=== PATIENT | male | born 1940 | race Caucasian/White ===

== ENCOUNTER 2019-10-05 22:18 | Observation (INO) ==
[2019-10-05] MEDS ORDERED: MORPHINE 4 MG/1 ML VIAL IV STA (22:47)
[2019-10-05] MEDS ORDERED: ONDANSETRON 4 MG/2 ML VIAL IV ONE (22:47)
[2019-10-05 23:26] LABS: Basophils % 0.1 % (0.0-0.8); Eosinophils % 0.3 % (0.00-10.9); Hematocrit 42.4 VOL% (42.0-52.0); Immature Granulocytes % 6.7 %; Immature Granulocytes Absolute 0.71 #; Lymphocytes # 2.1 10*3/uL (1.4-4.0); Lymphocytes % 19.4 % (21.2-54.2); Mean Corpuscular Volume 89.6 FL (87-102); Mean Platelet Volume 11.5 FL (9.6-12.0); Monocytes % 5.5 % (1.7-12.7); Platelet Count 196 T/CUMM (130-400); Red Blood Count 4.73 MC/CUMM (3.8-5.5); Red Cell Distribution Width 14.9 % (9.3-17.3); White Blood Count 10.5 T/CUMM (4-12)
[2019-10-05 23:37] LABS: Albumin 3.8 G/DL (3.4-5.0); Bilirubin,Total 0.7 MG/DL (0.2-1.0); Calcium 9.5 MG/DL (8.5-10.1); Osmolality,Calculated 276.1 MOS/KG (273-304); Total Protein 8.5 G/DL (6.4-8.3)
[2019-10-05] MEDS ORDERED: SODIUM CHLORIDE 0.9% 1,000 ML IV STA (23:45)
[2019-10-05] MEDS ORDERED: ACETYLCYSTEINE 600 MG CAPSULE PO STA (23:45)
[2019-10-06] MEDS ORDERED: MORPHINE 4 MG/1 ML VIAL IV STA (01:06)
[2019-10-06 01:50] LABS: Band Neutrophils 2 % (0-10); Lymphocytes 15 % (20-55); Segmented Neutrophils 78 % (50-85); Total Cells Counted 100
[2019-10-06 01:51] LABS: Platelet Estimate Normal
[2019-10-06] MEDS ORDERED: HYDROmorphone 2 MG/1 ML VIAL IV STA (01:52)
[2019-10-06] MEDS ORDERED: PROMETHAZINE INJ 12.5 MG in SODIUM CHLORIDE 0.9% 50 ML IV STA (01:52)
[2019-10-06] MEDS ORDERED: PROMETHAZINE 25 MG/1 ML VIAL ONE (02:15)
[2019-10-06 03:26] LABS: Apearance,Urine CLEAR (Clear); Bilirubin,Urine Negative (Negative); Blood, Urine Negative (Negative); Glucose,Urine (UA) Negative (Negative); Ketones,Urine 5 mg/dL (Negative); Mucus,Urine Occasional /LPF (Occasional); Nitrite,Urine Negative (Negative); Protein,Urine Negative; RBC,Urine 9 /HPF (0-4); Squamous Epithelial Cell,Urine Occasional /HPF (0-10); Urine Color Yellow (Yellow); Urine Specific Gravity 1.049 (1.001-1.035); Urine Urobilinogen < 2.0 EU/DL (0.2-1.0); WBC,Urine 1 /HPF (0-6)
[2019-10-06] MEDS ORDERED: ONDANSETRON 4 MG/2 ML VIAL IV PRN (04:56)
[2019-10-06] MEDS: SODIUM CHLORIDE 0.9% 1,000 ML IV SCH ×3 (05:52→20:30)
[2019-10-06 06:11] VITALS: BP 170/83
[2019-10-06] MEDS ORDERED: HYDROmorphone 2 MG/1 ML VIAL IV PRN (08:00)
[2019-10-06] MEDS: TAMSULOSIN 0.4 MG CAPSULE PO SCH ×2 (09:12→20:29)
[2019-10-07] MEDS: SODIUM CHLORIDE 0.9% 1,000 ML IV SCH ×2 (04:35→11:24)
[2019-10-07 05:23] LABS: Basophils % 0.2 % (0.0-0.8); Eosinophils # 0.1 10*3/uL (0.0-0.87); Eosinophils % 0.7 % (0.00-10.9); Hematocrit 33.7 VOL% (42.0-52.0); Hemoglobin 10.8 GM/DL (14.0-18.0); Immature Granulocytes % 2.2 %; Lymphocytes # 3.3 10*3/uL (1.4-4.0); Lymphocytes % 36.3 % (21.2-54.2); Mean Corpuscular Volume 93.1 FL (87-102); Mean Platelet Volume 12.1 FL (9.6-12.0); Monocytes % 13.2 % (1.7-12.7); Neutrophils % 47.4 % (38.7-73.9); Platelet Count 149 T/CUMM (130-400); Red Blood Count 3.62 MC/CUMM (3.8-5.5); Red Cell Distribution Width 15.6 % (9.3-17.3)
[2019-10-07 05:46] LABS: Osmolality,Calculated 281.4 MOS/KG (273-304)
[2019-10-07] MEDS: TAMSULOSIN 0.4 MG CAPSULE PO SCH (09:16)
== END 2019-10-07 12:58 | disposition home or self-care (01) ==
LOC: N.ED 22:18 → N.EDINP 22:18 → N.ICU 10-06 05:00
PROVIDERS: ADMIT Emergency Medicine; ATTEND Emergency Medicine

== ENCOUNTER 2019-11-03 10:06 | Observation (INO) ==
[2019-11-03] MEDS ORDERED: SODIUM CHLORIDE 0.9% 1,000 ML IV STA (10:35)
[2019-11-03] MEDS ORDERED: DILTIAZEM 25 MG/5 ML VIAL IV ONE (10:38)
[2019-11-03 10:42] LABS: Basophils % 0.2 % (0.0-0.8); Eosinophils # 0.2 10*3/uL (0.0-0.87); Eosinophils % 2.3 % (0.00-10.9); Hematocrit 40.8 VOL% (42.0-52.0); Hemoglobin 13.6 GM/DL (14.0-18.0); Hgb & Hct Comparison OK; Immature Granulocytes % 2.5 %; Immature Granulocytes Absolute 0.23 #; Lymphocytes # 3.2 10*3/uL (1.4-4.0); Lymphocytes % 35.8 % (21.2-54.2); Mean Corpuscular HGB Conc 33.3 GM/DL (32-36); Mean Corpuscular Hemoglobin 30 PG (27-34); Mean Corpuscular Volume 90.5 FL (87-102); Mean Platelet Volume 10.8 FL (9.6-12.0); Monocytes # 1.5 10*3/uL (0.11-0.8); Monocytes % 16.8 % (1.7-12.7); Neutrophils # 3.8 10*3/uL (1.4-7.4); Neutrophils % 42.4 % (38.7-73.9); Platelet Count 197 T/CUMM (130-400); Red Blood Count 4.51 MC/CUMM (3.8-5.5); Red Cell Distribution Width 15.1 % (9.3-17.3)
[2019-11-03] MEDS ORDERED: DILTIAZEM 50 MG/10 ML VIAL IV STA (10:42)
[2019-11-03 10:54] LABS: PT Patient Result 10.6 SECS (9.8-11.9); Partial Thromboplastin Time 29.3 SECS (23.9-33.8)
[2019-11-03 11:01] LABS: Lymphocytes 38 % (20-55); Monocytes 15 % (2-15); Segmented Neutrophils 47 % (50-85); Total Cells Counted 100
[2019-11-03 11:02] LABS: Hypochromasia 1+; Platelet Estimate Adequate
[2019-11-03 11:05] LABS: Albumin 3.8 G/DL (3.4-5.0); Albumin/Globulin Ratio 0.9 RATIO (1.1-2.2); Anion Gap 12.1 MMOL/L (5.0-15.0); Bilirubin,Total 0.5 MG/DL (0.2-1.0); Calcium 9.3 MG/DL (8.5-10.1); Globulin 3.9 G/DL (2.3-3.5); Osmolality,Calculated 274.7 MOS/KG (273-304); Potassium 4.1 MMOL/L (3.5-5.1); Total Protein 7.7 G/DL (6.4-8.3)
[2019-11-03 11:07] LABS: Creatine Kinase MB 1.6 NG/ML (0.5-3.6); Troponin I < 0.015 NG/ML (0.00-0.045)
[2019-11-03] MEDS: dilTIAZem Drip 125 MG/125 ML PREMIX IV SCH (11:15)
[2019-11-03 11:34] LABS: T4 (Thyroxine) 10.6 UG/DL (4.7-13.3); Thyroid Stimulating Hormone 3.55 uIU/ml (0.358-3.74)
[2019-11-03] MEDS ORDERED: ACETAMINOPHEN 325 MG TABLET PO PRN (13:52)
[2019-11-03] MEDS ORDERED: ONDANSETRON 4 MG/2 ML VIAL IV PRN (13:52)
[2019-11-03] MEDS ORDERED: hydrALAZINE 20 MG/1 ML VIAL IV PRN (13:52)
[2019-11-03] MEDS ORDERED: DOCUSATE SODIUM 100 MG CAPSULE PO PRN (13:52)
[2019-11-03] MEDS ORDERED: guaiFENesin/DM ER 600-30 MG TABLET PO PRN (13:52)
[2019-11-03] MEDS ORDERED: DEXTROSE 50% 25 GM/50 ML VIAL IV PRN (13:52)
[2019-11-03] MEDS ORDERED: GLUCAGON 1 MG VIAL IM PRN (13:52)
[2019-11-03] MEDS ORDERED: PANTOPRAZOLE 40 MG VIAL IV ONE (13:55)
[2019-11-03] MEDS ORDERED: ENOXAPARIN 40 MG/0.4 ML SYRINGE SUBCUT SCH (14:00)
[2019-11-03 14:14] LABS: Creatine Kinase MB 1.6 NG/ML (0.5-3.6); Troponin I < 0.015 NG/ML (0.00-0.045)
[2019-11-03 14:15] LABS: Magnesium 2.3 MG/DL (1.8-2.4); Risk Ratio 5.53; VLDL CHOLESTEROL 27.2 MG/DL
[2019-11-03 15:55] LABS: Apearance,Urine CLEAR (Clear); Bilirubin,Urine Negative (Negative); Blood, Urine Negative (Negative); Culture Indicated,Urine Not Indicated; Glucose,Urine (UA) Negative (Negative); Ketones,Urine Negative (Negative); Mucus,Urine Occasional /LPF (Occasional); Nitrite,Urine Negative (Negative); Protein,Urine Negative; Urine Color Straw (Yellow); Urine Specific Gravity 1.004 (1.001-1.035); Urine Urobilinogen < 2.0 EU/DL (0.2-1.0)
[2019-11-03] MEDS: ASPIRIN CHEW 81 MG TABLET PO SCH (16:32)
[2019-11-03] MEDS: AMOXICILLIN/CLAV 875 MG TABLET PO SCH (17:36)
[2019-11-03 17:57] LABS: Creatine Kinase MB 1.8 NG/ML (0.5-3.6); Troponin I 0.022 NG/ML (0.00-0.045)
[2019-11-03] MEDS: ASCORBIC ACID 500 MG TABLET PO SCH (20:37)
[2019-11-03] MEDS: METOPROLOL TARTRATE 25 MG TABLET PO SCH (20:37)
[2019-11-04] MEDS: AMOXICILLIN/CLAV 875 MG TABLET PO SCH (06:49)
[2019-11-04 06:51] LABS: Anion Gap 10.9 MMOL/L (5.0-15.0); Calcium 8.7 MG/DL (8.5-10.1); Osmolality,Calculated 275.5 MOS/KG (273-304); Potassium 3.9 MMOL/L (3.5-5.1)
[2019-11-04 08:34] VITALS: BP 179/82
[2019-11-04] MEDS: ASPIRIN CHEW 81 MG TABLET PO SCH (08:39)
[2019-11-04] MEDS: ASCORBIC ACID 500 MG TABLET PO SCH (08:39)
[2019-11-04] MEDS: METOPROLOL TARTRATE 25 MG TABLET PO SCH (08:39)
[2019-11-04] MEDS ORDERED: OMEGA 3 ACID ETHYL ESTERS 1 GM CAPSULE PO SCH (09:00)
[2019-11-04] MEDS ORDERED: FINASTERIDE 5 MG TABLET PO SCH (09:00)
[2019-11-04] MEDS ORDERED: ATENOLOL 100 MG PO SCH (09:00)
[2019-11-04] MEDS: dilTIAZem Drip 125 MG/125 ML PREMIX IV SCH (10:17)
[2019-11-04] MEDS ORDERED: amLODIPine 5 MG TABLET PO SCH (11:30)
== END 2019-11-04 12:46 | disposition home or self-care (01) ==
LOC: N.EDINP 10:06 → N.ED 10:06 → N.TELEN 16:43
PROVIDERS: ADMIT Internal Medicine; ATTEND Internal Medicine

== ENCOUNTER 2022-03-05 15:16 | Observation (INO) ==
[2022-03-05] MEDS ORDERED: ASPIRIN 325 MG TABLET PO STA (15:50)
[2022-03-05 16:15] LABS: Basophils % 0.2 % (0.0-0.8); Eosinophils # 0.2 10*3/uL (0.0-0.87); Hematocrit 33.2 VOL% (42.0-52.0); Hemoglobin 11.3 GM/DL (14.0-18.0); Immature Granulocytes % 1.3 %; Immature Granulocytes Absolute 0.11 #; Lymphocytes # 2.7 10*3/uL (1.4-4.0); Mean Corpuscular Volume 91.7 FL (87-102); Mean Platelet Volume 10.2 FL (9.6-12.0); Monocytes # 1.5 10*3/uL (0.11-0.8); Monocytes % 17.2 % (1.7-12.7); Neutrophils % 48.3 % (38.7-73.9); Platelet Count 245 T/CUMM (130-400); Red Blood Count 3.62 MC/CUMM (3.8-5.5); Red Cell Distribution Width 14.4 % (9.3-17.3); White Blood Count 8.6 T/CUMM (4-12)
[2022-03-05 16:26] LABS: PT Patient Result 11.3 SECS (10.1-12.1)
[2022-03-05 16:34] LABS: Albumin 3.4 G/DL (3.4-5.0); Osmolality,Calculated 281.3 MOS/KG (273-304); Potassium 4.5 MMOL/L (3.5-5.1)
[2022-03-05] MEDS ORDERED: ENOXAPARIN 100 MG/ML SYRINGE SUBCUT STA (16:59)
[2022-03-05 17:10] LABS: Eosinophils 2 % (0-10); Hypochromia 1+; Lymphocytes 31 % (20-55); Platelet Estimate Adequate; Total Cells Counted 100
[2022-03-05] MEDS ORDERED: ONDANSETRON 4 MG/2 ML VIAL IV PRN (17:23)
[2022-03-05] MEDS ORDERED: DOCUSATE SODIUM 100 MG CAPSULE PO PRN (17:23)
[2022-03-05] MEDS ORDERED: ACETAMINOPHEN 325 MG TABLET PO PRN (17:23)
[2022-03-05] MEDS ORDERED: TICAGRELOR 90 MG TABLET PO STA (18:09)
[2022-03-05] MEDS ORDERED: MORPHINE 2 MG/1 ML SYRINGE IV PRN (18:11)
[2022-03-05] MEDS ORDERED: NITROGLYCERIN SL 0.4 MG TABLET SL PRN (18:12)
[2022-03-05] MEDS: OMEGA 3 ACID ETHYL ESTERS 1 GM CAPSULE PO SCH (23:21)
[2022-03-05] MEDS: carvediloL 3.125 MG TABLET PO SCH (23:21)
[2022-03-05] MEDS: ROSUVASTATIN 20 MG TABLET PO SCH (23:21)
[2022-03-06 04:47] LABS: Basophils % 0.1 % (0.0-0.8); Eosinophils # 0.2 10*3/uL (0.0-0.87); Eosinophils % 2.4 % (0.00-10.9); Hematocrit 30.5 VOL% (42.0-52.0); Hemoglobin 10.2 GM/DL (14.0-18.0); Immature Granulocytes % 1.2 %; Immature Granulocytes Absolute 0.09 #; Lymphocytes # 1.9 10*3/uL (1.4-4.0); Lymphocytes % 26.3 % (21.2-54.2); Mean Corpuscular HGB Conc 33.4 GM/DL (32-36); Mean Platelet Volume 10.7 FL (9.6-12.0); Monocytes % 14.1 % (1.7-12.7); Neutrophils % 55.9 % (38.7-73.9); Platelet Count 217 T/CUMM (130-400); Red Blood Count 3.28 MC/CUMM (3.8-5.5); Red Cell Distribution Width 14.5 % (9.3-17.3); White Blood Count 7.4 T/CUMM (4-12)
[2022-03-06 05:32] LABS: Calcium 8.5 MG/DL (8.5-10.1); Osmolality,Calculated 280.4 MOS/KG (273-304); Risk Ratio 2.87; Thyroid Stimulating Hormone 4.53 uIU/ml (0.358-3.74); VLDL Cholesterol 19.4 MG/DL
[2022-03-06] MEDS ORDERED: MAGNESIUM SULF RIDER 2 GM/50 ML PREMIX IV PRN (08:07)
[2022-03-06] MEDS ORDERED: POTASSIUM CHLORIDE RIDER 10 MEQ/100 ML PREMIX IV PRN (08:07)
[2022-03-06] MEDS ORDERED: diphenhydrAMINE CAP 50 MG CAPSULE PO ONE (08:08)
[2022-03-06] MEDS ORDERED: DIAZEPAM 5 MG TABLET PO ONE (08:08)
[2022-03-06] MEDS: carvediloL 3.125 MG TABLET PO SCH (08:25)
[2022-03-06] MEDS: ASPIRIN EC 81 MG TABLET PO SCH (08:31)
[2022-03-06] MEDS: PANTOPRAZOLE 40 MG TABLET PO SCH (08:32)
[2022-03-06] MEDS: SODIUM CHLORIDE 0.9% 1,000 ML IV SCH ×2 (08:33→18:21)
[2022-03-06] MEDS ORDERED: VERAPAMIL 5 MG/2 ML VIAL ONE (08:45)
[2022-03-06] MEDS ORDERED: NITROGLYCERIN DRIP 50 MG/250 ML BOTTLE IV ONE (08:45)
[2022-03-06] MEDS: OMEGA 3 ACID ETHYL ESTERS 1 GM CAPSULE PO SCH (08:45)
[2022-03-06] MEDS ORDERED: HYDROmorphone 1 MG/1 ML SYRINGE ONE (08:46)
[2022-03-06] MEDS ORDERED: MIDAZOLAM 2 MG/2 ML VIAL ONE (08:47)
[2022-03-06] MEDS ORDERED: TICAGRELOR 90 MG TABLET PO SCH (09:00)
[2022-03-06] MEDS ORDERED: ENOXAPARIN 60 MG/0.6 ML SYRINGE ONE (09:08)
[2022-03-06] MEDS ORDERED: ENOXAPARIN 30 MG/0.3 ML SYRINGE ONE (09:40)
[2022-03-06] MEDS ORDERED: TIROFIBAN 5,000 MCG/100 ML PREMIX IV ONE (09:40)
[2022-03-06] MEDS ORDERED: PRASUGREL 10 MG TABLET ONE (10:18)
[2022-03-06 15:58] LABS: Folate > 24.00 NG/ML (5.38-24.0); Vitamin B12 506 PG/ML (211-911)
[2022-03-07] MEDS: carvediloL 3.125 MG TABLET PO SCH ×2 (00:15→09:05)
[2022-03-07] MEDS: ROSUVASTATIN 20 MG TABLET PO SCH (00:15)
[2022-03-07] MEDS: OMEGA 3 ACID ETHYL ESTERS 1 GM CAPSULE PO SCH ×2 (00:15→09:07)
[2022-03-07 05:30] LABS: Basophils % 0.1 % (0.0-0.8); Eosinophils # 0.2 10*3/uL (0.0-0.87); Eosinophils % 1.8 % (0.00-10.9); Immature Granulocytes % 1.3 %; Immature Granulocytes Absolute 0.11 #; Lymphocytes # 1.3 10*3/uL (1.4-4.0); Lymphocytes % 16.4 % (21.2-54.2); Mean Corpuscular HGB Conc 33.3 GM/DL (32-36); Mean Corpuscular Volume 93.8 FL (87-102); Mean Platelet Volume 10.8 FL (9.6-12.0); Monocytes # 1.2 10*3/uL (0.11-0.8); Monocytes % 14.2 % (1.7-12.7); Neutrophils % 66.2 % (38.7-73.9); Platelet Count 193 T/CUMM (130-400); Red Blood Count 2.88 MC/CUMM (3.8-5.5); Red Cell Distribution Width 14.8 % (9.3-17.3); White Blood Count 8.2 T/CUMM (4-12)
[2022-03-07 05:49] LABS: Calcium 8.2 MG/DL (8.5-10.1); Osmolality,Calculated 272.8 MOS/KG (273-304); Potassium 4.4 MMOL/L (3.5-5.1)
[2022-03-07 05:52] LABS: Blood Urea Nitrogen 15 MG/DL (7-18); Calcium 8.3 MG/DL (8.5-10.1); Carbon Dioxide 22 MMOL/L (21-32); Chloride 110 MMOL/L (98-107); Glucose 98 MG/DL (74-106); Osmolality,Calculated 275.7 MOS/KG (273-304); Potassium 4.5 MMOL/L (3.5-5.1); Sodium 138 MMOL/L (136-145)
[2022-03-07] MEDS ORDERED: PRASUGREL 10 MG TABLET PO SCH (09:00)
[2022-03-07] MEDS: ASPIRIN EC 81 MG TABLET PO SCH (09:06)
[2022-03-07] MEDS: PANTOPRAZOLE 40 MG TABLET PO SCH (09:07)
[2022-03-07 12:19] VITALS: BP 117/81
== END 2022-03-07 14:12 | disposition home or self-care (01) ==
LOC: N.ED 15:16 → N.EDINP 15:16 → SUATTDRO 17:21 → N.TELES 19:09
PROVIDERS: ADMIT Hospitalist; ATTEND Internal Medicine

== ENCOUNTER 2022-03-12 05:44 | Inpatient (IN) ==
[2022-03-12] MEDS ORDERED: DILTIAZEM 100 MG VIAL.ADD IV ONE (05:55)
[2022-03-12] MEDS ORDERED: DILTIAZEM 50 MG/10 ML VIAL IV ONE (05:55)
[2022-03-12] MEDS: DILTIAZEM INJ 100 MG in SODIUM CHLORIDE 0.9% 100 ML IV SCH (06:00)
[2022-03-12] MEDS ORDERED: DILTIAZEM 25 MG/5 ML VIAL IV STA (06:16)
[2022-03-12 06:19] LABS: Eosinophils # 0.1 10*3/uL (0.0-0.87); Eosinophils % 1.2 % (0.00-10.9); Hematocrit 28.4 VOL% (42.0-52.0); Hemoglobin 9.3 GM/DL (14.0-18.0); Immature Granulocytes % 1.7 %; Immature Granulocytes Absolute 0.09 #; Lymphocytes # 2.5 10*3/uL (1.4-4.0); Lymphocytes % 47.1 % (21.2-54.2); Mean Corpuscular HGB Conc 32.7 GM/DL (32-36); Mean Corpuscular Volume 92.8 FL (87-102); Monocytes # 1.5 10*3/uL (0.11-0.8); Monocytes % 28.3 % (1.7-12.7); Neutrophils % 21.7 % (38.7-73.9); Platelet Count 160 T/CUMM (130-400); Red Blood Count 3.06 MC/CUMM (3.8-5.5); Red Cell Distribution Width 14.9 % (9.3-17.3); White Blood Count 5.2 T/CUMM (4-12)
[2022-03-12 06:30] LABS: INR 1.1; PT Patient Result 11.6 SECS (10.1-12.1)
[2022-03-12 06:38] LABS: Eosinophils 2 % (0-10); Lymphocytes 47 % (20-55); Platelet Estimate Adequate; Total Cells Counted 100
[2022-03-12 06:39] LABS: Hypochromia Slight
[2022-03-12 06:46] LABS: Albumin 3.1 G/DL (3.4-5.0); Bilirubin,Total 1.5 MG/DL (0.20-1.00); Calcium 8.3 MG/DL (8.5-10.1); Osmolality,Calculated 273.8 MOS/KG (273-304); Potassium 3.9 MMOL/L (3.5-5.1); Thyroid Stimulating Hormone 4.34 uIU/ml (0.358-3.74); Total Protein 6.5 G/DL (6.4-8.2)
[2022-03-12] MEDS ORDERED: ONDANSETRON 4 MG/2 ML VIAL IV PRN (09:18)
[2022-03-12] MEDS ORDERED: ACETAMINOPHEN 325 MG TABLET PO PRN (09:18)
[2022-03-12] MEDS ORDERED: DOCUSATE SODIUM 100 MG CAPSULE PO PRN (09:37)
[2022-03-12] MEDS: ASPIRIN EC 81 MG TABLET PO SCH (11:04)
[2022-03-12] MEDS: PANTOPRAZOLE 40 MG TABLET PO SCH (11:04)
[2022-03-12] MEDS: LACTATED RINGERS 1,000 ML IV SCH ×2 (11:05→21:23)
[2022-03-12] MEDS: ENOXAPARIN 40 MG/0.4 ML SYRINGE SUBCUT SCH (11:10)
[2022-03-12] MEDS: carvediloL 3.125 MG TABLET PO SCH ×2 (12:13→17:07)
[2022-03-12] MEDS: OMEGA 3 ACID ETHYL ESTERS 1 GM CAPSULE PO SCH (21:22)
[2022-03-13] MEDS: LACTATED RINGERS 1,000 ML IV SCH ×2 (05:30→17:33)
[2022-03-13] MEDS: DILTIAZEM INJ 100 MG in SODIUM CHLORIDE 0.9% 100 ML IV SCH (05:38)
[2022-03-13 07:30] LABS: Calcium 8.1 MG/DL (8.5-10.1); Osmolality,Calculated 280.3 MOS/KG (273-304); Risk Ratio 3.88; VLDL Cholesterol 15.6 MG/DL
[2022-03-13 08:03] LABS: Basophils % 0.3 % (0.0-0.8); Eosinophils # 0.1 10*3/uL (0.0-0.87); Hematocrit 25.1 VOL% (42.0-52.0); Hemoglobin 8.2 GM/DL (14.0-18.0); Immature Granulocytes % 1.8 %; Immature Granulocytes Absolute 0.07 #; Lymphocytes % 49.9 % (21.2-54.2); Mean Corpuscular HGB Conc 32.7 GM/DL (32-36); Mean Corpuscular Volume 93.3 FL (87-102); Mean Platelet Volume 11.1 FL (9.6-12.0); Monocytes # 1.1 10*3/uL (0.11-0.8); Monocytes % 26.7 % (1.7-12.7); Neutrophils % 19.3 % (38.7-73.9); Platelet Count 141 T/CUMM (130-400); Red Blood Count 2.69 MC/CUMM (3.8-5.5); Red Cell Distribution Width 15.2 % (9.3-17.3)
[2022-03-13 08:39] LABS: Band Neutrophils 1 % (0-10); Eosinophils 3 % (0-10); Lymphocytes 52 % (20-55); Total Cells Counted 100
[2022-03-13 08:40] LABS: Hypochromia Slight; Microcytosis Slight
[2022-03-13 08:42] LABS: Platelet Estimate Adequate
[2022-03-13] MEDS ORDERED: PRASUGREL 10 MG TABLET PO SCH (09:00)
[2022-03-13] MEDS: ENOXAPARIN 40 MG/0.4 ML SYRINGE SUBCUT SCH (09:37)
[2022-03-13] MEDS: carvediloL 3.125 MG TABLET PO SCH (09:37)
[2022-03-13] MEDS: OMEGA 3 ACID ETHYL ESTERS 1 GM CAPSULE PO SCH ×2 (09:37→20:39)
[2022-03-13] MEDS: ASPIRIN EC 81 MG TABLET PO SCH (09:38)
[2022-03-13] MEDS: PANTOPRAZOLE 40 MG TABLET PO SCH (09:38)
[2022-03-13] MEDS: carvediloL 6.25 MG TABLET PO SCH (17:32)
[2022-03-13] MEDS: ROSUVASTATIN 20 MG TABLET PO SCH (20:38)
[2022-03-14] MEDS: LACTATED RINGERS 1,000 ML IV SCH ×3 (04:20→21:22)
[2022-03-14 04:24] LABS: Basophils % 0.3 % (0.0-0.8); Eosinophils # 0.1 10*3/uL (0.0-0.87); Eosinophils % 2.5 % (0.00-10.9); Hemoglobin 7.8 GM/DL (14.0-18.0); Immature Granulocytes % 4.4 %; Immature Granulocytes Absolute 0.16 #; Lymphocytes # 1.7 10*3/uL (1.4-4.0); Lymphocytes % 47.3 % (21.2-54.2); Mean Corpuscular HGB Conc 32.5 GM/DL (32-36); Mean Platelet Volume 10.8 FL (9.6-12.0); Monocytes # 0.9 10*3/uL (0.11-0.8); Monocytes % 23.4 % (1.7-12.7); Neutrophils % 22.1 % (38.7-73.9); Platelet Count 133 T/CUMM (130-400); Red Blood Count 2.58 MC/CUMM (3.8-5.5); White Blood Count 3.6 T/CUMM (4-12)
[2022-03-14 04:44] LABS: Calcium 8.3 MG/DL (8.5-10.1); Osmolality,Calculated 274.5 MOS/KG (273-304); Potassium 3.9 MMOL/L (3.5-5.1)
[2022-03-14 04:53] LABS: Eosinophils 2 % (0-10); Lymphocytes 46 % (20-55); Total Cells Counted 100
[2022-03-14 04:54] LABS: Hypochromia Slight; Microcytosis Slight; Platelet Estimate Adequate
[2022-03-14] MEDS: NITROGLYCERIN SL 0.4 MG TABLET SL PRN ×3 (04:58→05:27)
[2022-03-14] MEDS: DILTIAZEM INJ 100 MG in SODIUM CHLORIDE 0.9% 100 ML IV SCH (05:07)
[2022-03-14] MEDS: MORPHINE 2 MG/1 ML SYRINGE IV PRN (05:39)
[2022-03-14] MEDS ORDERED: DILTIAZEM 25 MG/5 ML VIAL IV ONE (05:45)
[2022-03-14] MEDS ORDERED: POTASSIUM CHLORIDE 20 MEQ TABLET PO ONE (08:02)
[2022-03-14] MEDS ORDERED: MAGNESIUM SULF RIDER 2 GM/50 ML PREMIX IV ONE (08:02)
[2022-03-14] MEDS ORDERED: SODIUM CHLORIDE 0.9% 1,000 ML IV PRN ×3 (08:49→11:06)
[2022-03-14] MEDS: PANTOPRAZOLE 40 MG TABLET PO SCH (08:55)
[2022-03-14] MEDS: carvediloL 6.25 MG TABLET PO SCH (08:55)
[2022-03-14] MEDS: OMEGA 3 ACID ETHYL ESTERS 1 GM CAPSULE PO SCH ×2 (08:55→21:18)
[2022-03-14 09:12] LABS: % Iron Saturation 8.6 % (18-50)
[2022-03-14] MEDS: carvediloL 12.5 MG TABLET PO SCH ×2 (12:26→17:40)
[2022-03-14] MEDS: ASCORBIC ACID 500 MG TABLET PO SCH ×2 (12:28→21:18)
[2022-03-14] MEDS ORDERED: ASPIRIN CHEW 81 MG TABLET PO ONE (17:00)
[2022-03-14] MEDS ORDERED: PRASUGREL 10 MG TABLET PO ONE (17:00)
[2022-03-14 19:12] LABS: Hematocrit 27.2 VOL% (42.0-52.0); Hemoglobin 9.1 GM/DL (14.0-18.0)
[2022-03-14] MEDS: ROSUVASTATIN 20 MG TABLET PO SCH (21:19)
[2022-03-15] MEDS: guaiFENesin 200 MG/10 ML UDCUP PO PRN ×2 (05:08→11:45)
[2022-03-15 05:40] LABS: Basophils % 0.2 % (0.0-0.8); Eosinophils # 0.1 10*3/uL (0.0-0.87); Eosinophils % 1.4 % (0.00-10.9); Hematocrit 28.8 VOL% (42.0-52.0); Hemoglobin 9.5 GM/DL (14.0-18.0); Immature Granulocytes % 4.7 %; Lymphocytes # 1.8 10*3/uL (1.4-4.0); Lymphocytes % 42.9 % (21.2-54.2); Mean Corpuscular Volume 91.1 FL (87-102); Monocytes # 1.1 10*3/uL (0.11-0.8); Monocytes % 24.7 % (1.7-12.7); Neutrophils % 26.1 % (38.7-73.9); Platelet Count 136 T/CUMM (130-400); Red Blood Count 3.16 MC/CUMM (3.8-5.5); Red Cell Distribution Width 16.1 % (9.3-17.3); White Blood Count 4.3 T/CUMM (4-12)
[2022-03-15 05:58] LABS: Calcium 8.6 MG/DL (8.5-10.1); Osmolality,Calculated 274.5 MOS/KG (273-304); Potassium 4.2 MMOL/L (3.5-5.1)
[2022-03-15 06:03] LABS: Eosinophils 7 % (0-10); Lymphocytes 43 % (20-55); Total Cells Counted 100
[2022-03-15 06:04] LABS: Microcytosis 1+; Platelet Estimate Adequate; Target Cells Slight
[2022-03-15] MEDS: PRASUGREL 10 MG TABLET PO SCH (09:53)
[2022-03-15] MEDS: ASCORBIC ACID 500 MG TABLET PO SCH ×2 (09:53→21:14)
[2022-03-15] MEDS: PANTOPRAZOLE 40 MG TABLET PO SCH (09:53)
[2022-03-15] MEDS: ASPIRIN CHEW 81 MG TABLET PO SCH (09:53)
[2022-03-15] MEDS: carvediloL 12.5 MG TABLET PO SCH ×2 (09:53→17:50)
[2022-03-15] MEDS: OMEGA 3 ACID ETHYL ESTERS 1 GM CAPSULE PO SCH ×2 (09:53→21:14)
[2022-03-15] MEDS: LACTATED RINGERS 1,000 ML IV SCH ×2 (11:33→21:13)
[2022-03-15] MEDS: DILTIAZEM INJ 100 MG in SODIUM CHLORIDE 0.9% 100 ML IV SCH (11:34)
[2022-03-15] MEDS: ROSUVASTATIN 20 MG TABLET PO SCH (21:14)
[2022-03-16] MEDS: guaiFENesin 200 MG/10 ML UDCUP PO PRN ×2 (00:42→04:50)
[2022-03-16] MEDS: MORPHINE 2 MG/1 ML SYRINGE IV PRN (02:06)
[2022-03-16] MEDS: LACTATED RINGERS 1,000 ML IV SCH (04:47)
[2022-03-16 05:19] LABS: Basophils % 0.2 % (0.0-0.8); Eosinophils # 0.1 10*3/uL (0.0-0.87); Eosinophils % 1.3 % (0.00-10.9); Hematocrit 27.2 VOL% (42.0-52.0); Hemoglobin 8.6 GM/DL (14.0-18.0); Immature Granulocytes % 2.2 %; Lymphocytes # 1.8 10*3/uL (1.4-4.0); Lymphocytes % 38.6 % (21.2-54.2); Mean Corpuscular HGB Conc 31.6 GM/DL (32-36); Mean Corpuscular Volume 92.2 FL (87-102); Mean Platelet Volume 11.4 FL (9.6-12.0); Monocytes # 1.1 10*3/uL (0.11-0.8); Monocytes % 24.9 % (1.7-12.7); Neutrophils % 32.8 % (38.7-73.9); Platelet Count 133 T/CUMM (130-400); Red Blood Count 2.95 MC/CUMM (3.8-5.5); Red Cell Distribution Width 16.2 % (9.3-17.3); White Blood Count 4.5 T/CUMM (4-12)
[2022-03-16 05:34] LABS: Calcium 8.3 MG/DL (8.5-10.1); Osmolality,Calculated 274.5 MOS/KG (273-304); Potassium 4.2 MMOL/L (3.5-5.1)
[2022-03-16 05:48] LABS: Eosinophils 2 % (0-10); Hypochromia Slight; Lymphocytes 36 % (20-55); Microcytosis Slight; Platelet Estimate Adequate; Total Cells Counted 100
[2022-03-16] MEDS: PRASUGREL 10 MG TABLET PO SCH (09:44)
[2022-03-16] MEDS: ASCORBIC ACID 500 MG TABLET PO SCH (09:44)
[2022-03-16] MEDS: OMEGA 3 ACID ETHYL ESTERS 1 GM CAPSULE PO SCH (09:44)
[2022-03-16] MEDS: PANTOPRAZOLE 40 MG TABLET PO SCH (09:44)
[2022-03-16] MEDS: ASPIRIN CHEW 81 MG TABLET PO SCH (09:44)
[2022-03-16] MEDS: carvediloL 12.5 MG TABLET PO SCH ×2 (09:45→17:47)
[2022-03-16] MEDS ORDERED: POLYETHYLENE GLYCOL POWDER 17 GM PACK PO SCH (10:00)
[2022-03-16] MEDS ORDERED: FERRIC GLUCONATE COMPLEX 125 MG in SODIUM CHLORIDE 0.9% 100 ML IV SCH (10:00)
[2022-03-16 16:12] VITALS: BP 158/78
== END 2022-03-16 17:12 | disposition home health service (06) | DRG 309 ==
LOC: N.ED 05:44 → N.EDINP 05:44 → SUATTDRO 09:18 → N.TELES 15:24 → SUATTDRO 03-14 08:46
PROVIDERS: ADMIT Phlebology; ATTEND Internal Medicine